=== PATIENT | female | born 1955 | race Caucasian/White ===

== ENCOUNTER 2024-04-02 18:32 | Inpatient (IN) | payer MEDICARE ==
[~2024-04-02] VITALS: Ht 172.7 cm; Wt 98.4 kg
[2024-04-02] MEDS ORDERED: Lactated Ringer's 1,000 ML IV ONE (22:55)
[2024-04-02] MEDS ORDERED: Ondansetron HCl 2 MG / ML 2ML Vial IV ONE (22:55)
[2024-04-03] MEDS ORDERED: Ondansetron HCl 2 MG / ML 2ML Vial IV PRN (00:30)
[2024-04-03] MEDS ORDERED: Acetaminophen 325 MG TABLET PO PRN (00:30)
[2024-04-03] MEDS ORDERED: FLU VACC TS2024-25(6MOS UP)/PF 45 MCG/0.5 ML SYRINGE IM SCH (00:35)
[2024-04-03] MEDS ORDERED: Potassium Chl 20MEQ/Water100ML 100 ML IV SCH (00:50)
[2024-04-03 00:56] LABS: Source, Urine Clean Catch
[2024-04-03] MEDS ORDERED: NS 1,000 ML IV SCH (01:00)
[2024-04-03 01:09] LABS: Appearance, Urine Hazy (Clear); Bilirubin, Urine Neg (Neg); Blood, Urine 1+ (Neg); Color, Urine Yellow (P-Yellow); Glucose Qualitative, Urine Neg (Neg); Ketones, Urine Neg (Neg); Leukocyte Esterase, Urine 1+ (Neg); Nitrite, Urine Neg (Neg); Protein, Urine 3+ (Neg); Urobilinogen, Urine 1+ (Normal)
[2024-04-03 01:23] LABS: Amorphous Light (0-Heavy); Bacteria Mod /hpf; Red Blood Cells, Urine 0-2 /hpf (0-2); Squamous Epithelial Cells Many /hpf (Few); White Blood Cells, Urine 0-2 /hpf (0-5)
[2024-04-03 04:18] VITALS: BP 137/83
[2024-04-03] MEDS ORDERED: LOSARTAN-HCTZ1 EACH (04:19)
[2024-04-03] MEDS ORDERED: LOSARTAN-HCTZ1 EAC5 PO (04:20)
[2024-04-03] MEDS ORDERED: [UNRECOGNIZED DRUG - CODE] PO (05:07)
[2024-04-03] MEDS ORDERED: LEVSOD75 PO (05:08)
[2024-04-03] MEDS ORDERED: ALBU90OI INH (05:50)
[2024-04-03] MEDS ORDERED: CefTRIAXone Sodium 1,000 MG in NS 100 ML IV SCH (06:19)
[2024-04-03 07:14] VITALS: BP 138/82
[2024-04-03 07:15] LABS: BASOPHILS ABSOLUTE AUTO 0.05 K/mm3 (0.00-0.23); BASOPHILS PERCENT AUTO 0 % (0-2); EOSINOPHILS ABSOLUTE AUTO 0.01 K/mm3 (0.00-0.68); EOSINOPHILS PERCENT AUTO 0 % (0-6); Hemoglobin 13.1 g/dL (11.5-16.0); IMMATURE GRAN ABSOLUTE AUTO 0.29 K/mm3 (0.00-0.10); IMMATURE GRAN PERCENT AUTO 1 % (0-1); LYMPHOCYTES ABSOLUTE AUTO 0.83 K/mm3 (0.84-5.20); LYMPHOCYTES PERCENT AUTO 3 % (21-46); MONOCYTES ABSOLUTE AUTO 1.83 K/mm3 (0.16-1.47); MONOCYTES PERCENT AUTO 6 % (4-13); Mean Corpuscular HGB 31.5 pg (26.0-34.0); Mean Corpuscular HGB Conc 34.5 g/dL (31.5-36.5); Mean Corpuscular Volume 91 fL (80-100); Mean Platelet Volume 10.5 fL (9.1-12.4); NEUTROPHILS ABSOLUTE AUTO 28.78 K/mm3 (1.96-9.15); NEUTROPHILS PERCENT AUTO 91 % (41-73); Platelet Count 213 K/mm3 (150-400); RDW Coefficient Variation 14.4 % (11.7-14.2); RDW Standard Deviation 48.1 fL (35.1-46.3); Red Blood Cell Count 4.16 M/mm3 (3.80-5.20); White Blood Cell Count 31.79 K/mm3 (4.00-11.30)
[2024-04-03 07:33] LABS: Alanine Aminotransfer (ALT/SGP 16 U/L (12-78); Albumin, Blood 2.8 g/dL (3.4-5.0); Albumin/Globulin Ratio 0.7 (0.8-1.8); Alk Phos 89 U/L (50-136); Anion Gap 15 mmol/L (3-11); Aspartate Aminotrans (AST/SGOT 18 U/L (12-37); Bilirubin, Total 1.3 mg/dL (0.1-1.0); Blood Urea Nitrogen 26 mg/dL (8-24); Bun/Creatinine Ratio 23.4 (12.0-20.0); CHOL/HDL RATIO 2.4; CO2, Blood 22 mmol/L (21-32); Calcium, Blood 8.5 mg/dL (8.5-10.1); Chloride, Blood 99 mmol/L (98-108); Cholesterol 137 mg/dL (50-200); Creatinine, Blood 1.11 mg/dL (0.40-1.00); Globulin, Blood 4.1 g/dL (2.2-4.0); Glomerular Filtration Rate 54 (60-); Glucose, Blood 127 mg/dL (70-99); HDL Cholesterol 56 mg/dL (>39); LDL/HDL RATIO 1.2; Low Density Lipoprotein Chol 68 mg/dL (0-110); Magnesium, Blood 1.8 mg/dL (1.6-2.4); Potassium, Blood 3.5 mmol/L (3.5-5.5); Sodium, Blood 132 mmol/L (136-145); Total Protein, Blood 6.9 g/dL (6.4-8.2); Triglycerides 65 mg/dL (30-160); Very Low Density Lipoprot Chol 13 mg/dL (6-32)
[2024-04-03 07:41] LABS: BASOPHILS PERCENT MAN 0 % (0-2); EOSINOPHILS PERCENT MAN 0 % (0-6); LYMPHOCYTES ABSOLUTE MAN 0.95 K/mm3 (0.84-5.20); LYMPHOCYTES PERCENT MAN 3 % (21-46); MONOCYTES ABSOLUTE MAN 0.95 K/mm3 (0.16-1.47); MONOCYTES PERCENT MAN 3 % (4-13); NEUTROPHILS ABSOLUTE MAN 29.88 K/mm3 (1.96-9.15); SEG NEUTROPHILS PERCENT MAN 94 % (41-73); TOTAL CELLS COUNTED 100
[2024-04-03] MEDS ORDERED: Heparin Sodium,Porcine 5,000 UNIT/0.5 ML SDV SC SCH (09:00)
[2024-04-03] MEDS ORDERED: HYDROmorphone HCl/Pf 1MG SYR IV PRN (10:35)
[2024-04-03 15:20] VITALS: BP 128/77
--- NOTE | 2024-04-03 15:22 | NUR ---
PT SITTING UP IN BED VISITING WITH HER FAMILY, PT HAS BEEN PLEASANT AND COOPERATIVE WITH CARE T/O THE DAY, MED ONCE FOR PAIN, PT HAS DENIED ANY NAUSEA, VSS, WILL CONT TO MONITOR
[2024-04-03 19:59] VITALS: BP 123/72
[2024-04-04 02:51] VITALS: BP 90/62
[2024-04-04 03:10] VITALS: BP 128/72
[2024-04-04 05:25] LABS: BASOPHILS ABSOLUTE AUTO 0.03 K/mm3 (0.00-0.23); BASOPHILS PERCENT AUTO 0 % (0-2); EOSINOPHILS ABSOLUTE AUTO 0.19 K/mm3 (0.00-0.68); EOSINOPHILS PERCENT AUTO 1 % (0-6); Hematocrit 32.6 % (33.0-51.0); Hemoglobin 11.2 g/dL (11.5-16.0); IMMATURE GRAN ABSOLUTE AUTO 0.07 K/mm3 (0.00-0.10); IMMATURE GRAN PERCENT AUTO 0 % (0-1); LYMPHOCYTES ABSOLUTE AUTO 0.94 K/mm3 (0.84-5.20); LYMPHOCYTES PERCENT AUTO 5 % (21-46); MONOCYTES ABSOLUTE AUTO 1.22 K/mm3 (0.16-1.47); MONOCYTES PERCENT AUTO 6 % (4-13); Mean Corpuscular HGB Conc 34.4 g/dL (31.5-36.5); Mean Corpuscular Volume 90 fL (80-100); Mean Platelet Volume 10.6 fL (9.1-12.4); NEUTROPHILS ABSOLUTE AUTO 16.92 K/mm3 (1.96-9.15); NEUTROPHILS PERCENT AUTO 87 % (41-73); Platelet Count 210 K/mm3 (150-400); RDW Coefficient Variation 13.8 % (11.7-14.2); RDW Standard Deviation 45.9 fL (35.1-46.3); Red Blood Cell Count 3.61 M/mm3 (3.80-5.20); White Blood Cell Count 19.37 K/mm3 (4.00-11.30)
[2024-04-04 05:56] LABS: Albumin, Blood 2.4 g/dL (3.4-5.0); Albumin/Globulin Ratio 0.6 (0.8-1.8); Bilirubin, Total 0.9 mg/dL (0.1-1.0); Bun/Creatinine Ratio 21.2 (12.0-20.0); Calcium, Blood 8.3 mg/dL (8.5-10.1); Creatinine, Blood 0.76 mg/dL (0.40-1.00); Globulin, Blood 3.8 g/dL (2.2-4.0); Total Protein, Blood 6.2 g/dL (6.4-8.2)
[2024-04-04 07:24] VITALS: BP 108/71
[2024-04-04] MEDS ORDERED: Potassium Chl 20MEQ/Water100ML 100 ML IV SCH (08:15)
[2024-04-04] MEDS ORDERED: Sennosides 8.6 MG Tab PO SCH (12:00)
[2024-04-04] MEDS ORDERED: NS 250 ML IV PRN (13:20)
[2024-04-04 15:30] VITALS: BP 146/80
--- NOTE | 2024-04-04 18:09 | NUR ---
SHIFT SUMMARY PT CONT LEVEL OF CARE WITH NO ACUTE CHANGES NOTED. PT IS A&O X4 AND INDEPENDENT IN ROOM. PT STATED SHE HAS NOT HAD A BM SINCE 03/31. PT WAS STARTED ON SENNA THIS SHIFT WITH NO RESULTS AT THIS TIME.
[2024-04-04 20:10] VITALS: BP 120/71
[2024-04-04] MEDS ORDERED: Bisacodyl 10 MG Supp PR PRN (20:10)
[2024-04-04] MEDS ORDERED: Polyethylene Glycol 3350 17 gm PO SCH (20:10)
[2024-04-04] MEDS ORDERED: Bisacodyl 10 MG Supp PR ONE (21:35)
--- NOTE | 2024-04-05 04:17 | NUR ---
OUTSIDE SALES ASSOCIATE SUMMARY RECEIVED ORDER FROM MD FOR A SUPPOSITORY AND MIRALAX AND GAVE TO PT. IT WAS EFFECTIVE AND SHE HAD A MEDIUM BOWEL MOVEMENT.
[2024-04-05 05:41] LABS: BASOPHILS ABSOLUTE AUTO 0.03 K/mm3 (0.00-0.23); BASOPHILS PERCENT AUTO 0 % (0-2); EOSINOPHILS ABSOLUTE AUTO 0.25 K/mm3 (0.00-0.68); EOSINOPHILS PERCENT AUTO 2 % (0-6); Hematocrit 32.9 % (33.0-51.0); Hemoglobin 11.2 g/dL (11.5-16.0); IMMATURE GRAN ABSOLUTE AUTO 0.08 K/mm3 (0.00-0.10); IMMATURE GRAN PERCENT AUTO 1 % (0-1); LYMPHOCYTES ABSOLUTE AUTO 0.92 K/mm3 (0.84-5.20); LYMPHOCYTES PERCENT AUTO 7 % (21-46); MONOCYTES ABSOLUTE AUTO 1.35 K/mm3 (0.16-1.47); MONOCYTES PERCENT AUTO 10 % (4-13); Mean Corpuscular HGB 30.7 pg (26.0-34.0); Mean Corpuscular Volume 90 fL (80-100); Mean Platelet Volume 10.8 fL (9.1-12.4); NEUTROPHILS ABSOLUTE AUTO 11.21 K/mm3 (1.96-9.15); NEUTROPHILS PERCENT AUTO 81 % (41-73); Platelet Count 228 K/mm3 (150-400); RDW Coefficient Variation 13.4 % (11.7-14.2); RDW Standard Deviation 44.9 fL (35.1-46.3); Red Blood Cell Count 3.65 M/mm3 (3.80-5.20); White Blood Cell Count 13.84 K/mm3 (4.00-11.30)
[2024-04-05 05:45] VITALS: BP 117/77
[2024-04-05 06:32] LABS: Bun/Creatinine Ratio 13.6 (12.0-20.0); Calcium, Blood 8.6 mg/dL (8.5-10.1); Creatinine, Blood 0.66 mg/dL (0.40-1.00); Potassium, Blood 2.9 mmol/L (3.5-5.5)
[2024-04-05 07:28] VITALS: BP 123/78
[2024-04-05] MEDS ORDERED: Potassium Chloride 20 MEQ TabCR PO ONE ×2 (08:00→13:00)
--- NOTE | 2024-04-05 08:08 | NUR ---
pt sitting up in chair a/ox4, pleasant and cooperative with care, follows commands well, denies any pain this am, states she had a bm early this am and feels better, lungs are clear t/o, resp even and unlabored, no cough noted, hrr, no edema noted, ppp+2, cap refill <3 sec, vs stable, afebrile, piv to lac site is clear and patent, btx4, abd flat soft nontender, voids without diff, skin c/w/d, maew, funmi, call light in reach.
[2024-04-05] MEDS ORDERED: Verapamil HCL 180 MG TABCR PO SCH (09:00)
[2024-04-05] MEDS ORDERED: Levothyroxine Sodium 0.075 MG Tab PO SCH (09:00)
[2024-04-05] MEDS ORDERED: Acetaminophen650 M1 PO (13:19)
[2024-04-05] MEDS ORDERED: LOSA50 PO (13:19)
[2024-04-05] MEDS ORDERED: MIRALAX17 GM PO (13:20)
[2024-04-05] MEDS ORDERED: POTCHL20ER PO (13:20)
[2024-04-05] MEDS ORDERED: SENNA LAXATIVE8.6 MG PO (13:22)
[2024-04-05] MEDS ORDERED: OXAYDO5 M3 PO (13:23)
--- NOTE | 2024-04-05 14:16 | NUR ---
Pt has been discharged to home, iv removed intact, gave second dose of potassium as ordered, went over discharge instructions with her, she verbalized understanding, script for oxy and labs given to her, she placed in her bag, new medications faxed to [facility], left via wheel chair with nurse and spouce in attendence with all her belongings.
== END 2024-04-05 14:50 | disposition home or self-care (01) | DRG 871 ==
LOC: ER 18:32 → MEDS 18:33
PROVIDERS: Internal Medicine; Student in an Organized Health Care Education/Training Program; ADMIT Student in an Organized Health Care Education/Training Program
DX: A41.9 Sepsis, unspecified organism (principal); K85.90 Acute pancreatitis without necrosis or infection, unspecified; E87.1 Hypo-osmolality and hyponatremia; N39.0 Urinary tract infection, site not specified; N17.9 Acute kidney failure, unspecified; I10 Essential (primary) hypertension; R65.20 Severe sepsis without septic shock; E03.9 Hypothyroidism, unspecified; E83.51 Hypocalcemia; E87.6 Hypokalemia; R73.9 Hyperglycemia, unspecified; E86.0 Dehydration; N28.9 Disorder of kidney and ureter, unspecified; Z79.899 Other long term (current) drug therapy; Z79.890 Hormone replacement therapy
CPT/HCPCS: 36415; 74177; 80048; 80053; 80061; 81001; 82570; 83690; 83735; 84132; 84300; 85025; 87086; 96361; 96365; 96366; 96367; 96372; 96375; 96376; 99284-25; A9270; G0378; J0696; J1170; J1644; J3480; J7030; J7120; Q9967

== ENCOUNTER → 2024-04-02 | Outpatient (CLI) | payer MEDICARE ==
[~2024-04-02] MED LIST: ALBU90OI INH; Acetaminophen650 M1 PO; LEVSOD75 PO; LOSA50 PO; LOSARTAN-HCTZ1 EAC5 PO; LOSARTAN-HCTZ1 EACH; MIRALAX17 GM PO; OXAYDO5 M3 PO; POTCHL20ER PO; SENNA LAXATIVE8.6 MG PO; [UNRECOGNIZED DRUG - CODE] PO
[2024-04-02 17:53] LABS: Hematocrit 39.5 % (33.0-51.0); Hemoglobin 13.9 g/dL (11.5-16.0); Mean Corpuscular HGB 31.7 pg (26.0-34.0); Mean Corpuscular HGB Conc 35.2 g/dL (31.5-36.5); Mean Corpuscular Volume 90 fL (80-100); Mean Platelet Volume 10.2 fL (9.1-12.4); Platelet Count 265 K/mm3 (150-400); RDW Coefficient Variation 14.5 % (11.7-14.2); RDW Standard Deviation 47.8 fL (35.1-46.3); Red Blood Cell Count 4.39 M/mm3 (3.80-5.20); White Blood Cell Count 36.03 K/mm3 (4.00-11.30)
[2024-04-02 18:06] LABS: BAND PERCENT MAN 8 % (0-8); BASOPHILS PERCENT MAN 0 % (0-2); EOSINOPHILS PERCENT MAN 0 % (0-6); LYMPHOCYTES ABSOLUTE MAN 0.72 K/mm3 (0.84-5.20); LYMPHOCYTES PERCENT MAN 2 % (21-46); MONOCYTES ABSOLUTE MAN 1.44 K/mm3 (0.16-1.47); MONOCYTES PERCENT MAN 4 % (4-13); NEUTROPHILS ABSOLUTE MAN 33.86 K/mm3 (1.96-9.15); SEG NEUTROPHILS PERCENT MAN 86 % (41-73); TOTAL CELLS COUNTED 100
[2024-04-02 18:07] LABS: Albumin, Blood 3.2 g/dL (3.4-5.0); Albumin/Globulin Ratio 0.8 (0.8-1.8); Bilirubin, Total 1.6 mg/dL (0.1-1.0); Bun/Creatinine Ratio 15.7 (12.0-20.0); Calcium, Blood 8.4 mg/dL (8.5-10.1); Creatinine, Blood 1.27 mg/dL (0.40-1.00); Potassium, Blood 3.2 mmol/L (3.5-5.5); Total Protein, Blood 7.2 g/dL (6.4-8.2)
== END | disposition home or self-care (01) ==
LOC: LAB 17:34 → LAB SHORT 17:34
PROVIDERS: Family Medicine
DX: R10.9 Unspecified abdominal pain (principal)
CPT/HCPCS: 80053; 83690; 85025

== ENCOUNTER → 2024-05-20 | Outpatient (CLI) | payer MEDICARE | END | disposition home or self-care (01) | LOC: LAB SHORT 11:38 → LAB 11:38 | DX: R30.0 Dysuria (principal) | CPT/HCPCS: 87086 ==